=== PATIENT | male | born 1990 | race Hispanic/Latino ===

== ENCOUNTER 2018-01-20 20:05 | Inpatient (IN) | payer OTHER ==
[2018-01-20] MEDS ORDERED: Sodium Chloride 0.9% 1,000 ML IV STA (21:39)
--- NOTE | 2018-01-20 21:42 | ED PDOC ---
HPI: Headache Chief Complaint (Provider): headache History Per: Patient History/Exam Limitations: no limitations Onset/Duration Of Symptoms: Days (2) Current Symptoms Are (Timing): Still Present Quality: "Pain" Preceeding Symptoms: None Additional History Per: Patient Additional Complaint(s): 27 y/o male presents for evaluation of throbbing frontal headache x 2 days. Associated joint pain, chills. Patient took Tylenol at 10:30 this morning without improvement. Patient describes headaches as "worst headache of his life ". Patient evaluated by Urgent Care and sent to ED for further evaluation. Denies dizziness, extremity numbness/weakness, vision changes, photophobia, neck stiffness, nausea/vomiting, cough/congestion, chest pain, shortness of breath, palpitations, abdominal pain, urinary symptoms, recent travel, sick contacts. <Dannielle Young - Last Filed: 01/21/18 02:56> <Ly Villegas - Last Filed: 01/25/18 09:39> Time Seen by Provider: 01/20/18 21:30 Chief Complaint (Nursing): Headache Past Medical History Reviewed: Historical Data, Nursing Documentation, Vital Signs Vital Signs: Last Vital Signs Temp 102.1 F H 01/20/18 20:52 Pulse 86 01/20/18 20:52 Resp 20 01/20/18 20:52 BP 126/70 01/20/18 20:52 Pulse Ox 100 01/20/18 20:52 - Medical History PMH: No Chronic Diseases - Surgical History Surgical History: No Surg Hx - Family History Family History: States: No Known Family Hx - Living Arrangements Living Arrangements: With Family <Dannielle Young - Last Filed: 01/21/18 02:56> Vital Signs: Last Vital Signs Temp 97.5 F L 01/25/18 08:13 Pulse 62 01/25/18 08:13 Resp 18 01/25/18 08:13 BP 111/61 01/25/18 08:13 Pulse Ox 100 01/25/18 08:13 <Ly Villegas - Last Filed: 01/25/18 09:39> - Home Medications Home Medications: Ambulatory Orders Medication Instructions Recorded No Known Home Med 01/20/18 - Allergies Allergies/Adverse Reactions: Allergies Allergy/AdvReac Type Severity Reaction Status Date / Time No Known Allergies Allergy Verified 01/20/18 20:54 Review of Systems ROS Statement: Except As Marked, All Systems Reviewed And Found Negative Constitutional: Positive for: Fever Neurological: Positive for: Headache <Dannielle Young C - Last Filed: 01/21/18 02:56> Physical Exam - Reviewed Nursing Documentation Reviewed: Yes Vital Signs Reviewed: Yes - Physical Exam Appears: Positive for: Well, Non-toxic, No Acute Distress Head Exam: Positive for: ATRAUMATIC, NORMAL INSPECTION, NORMOCEPHALIC Skin: Positive for: Normal Color Eye Exam: Positive for: Normal appearance, EOMI, PERRL ENT: Positive for: Normal ENT Inspection Neck: Positive for: Normal, Painless ROM Cardiovascular/Chest: Positive for: Regular Rate, Rhythm Respiratory: Positive for: Normal Breath Sounds Gastrointestinal/Abdominal: Positive for: Normal Exam Back: Positive for: Normal Inspection Extremity: Positive for: Normal ROM Neurologic/Psych: Positive for: Alert, Oriented <Dannielle Young C - Last Filed: 01/21/18 02:56> - Laboratory Results Result Diagrams: 01/20/18 22:12 01/20/18 22:12 - ECG O2 Sat by Pulse Oximetry: 100 - Radiology X-Ray: Viewed By Ga X-Ray Interpretation: No Acute Disease - Progress ED Course And Treament: labs, CT head, urine, flu, strep, tylenol PO Case discussed with ED attending Dr. Villegas, IV rocephin, IV vancomycin, IV acyclovir ordered EXAM: CT Head Without Intravenous Contrast CLINICAL HISTORY: 27 years old, male; Pain and signs and symptoms; Fever; Headache; Headache not specified; Additional info: Headache, fever TECHNIQUE: Axial computed tomography images of the head/brain without intravenous contrast. All CT scans at this facility use one or more dose reduction techniques, viz.: automated exposure control; ma/kV adjustment per patient size (including targeted exams where dose is matched to indication; i.e. head); or iterative reconstruction technique. Coronal and sagittal reformatted images were created and reviewed. COMPARISON: No relevant prior studies available. FINDINGS: Brain: No intracranial hemorrhage. No mass. No definite edema. Ventricles: No hydrocephalus. Bones/joints: No acute fracture. Soft tissues: Unremarkable. Sinuses: No acute sinusitis. Mastoid air cells: No mastoid effusion. Orbits: Unremarkable as visualized. IMPRESSION: 1. No definite acute intracranial abnormality. Patient evaluated by Dr. Villegas; consent obtained for LP procedure. LP procedure completed by Dr. Villegas 2:30 Patient states headache improved. Vitals improved. Findings discussed with Dr. Powell, findings consistent with viral meningitis. Case discussed with Dr. Parekh, medical service on-call, for admission. <Dannielle Young - Last Filed: 01/21/18 02:56> - Laboratory Results Result Diagrams: 01/22/18 06:05 01/23/18 11:00 <Ly Villegas - Last Filed: 01/25/18 09:39> Disposition - Patient ED Disposition Is Patient to be Admitted: No - Disposition Disposition Time: 02:55 <Dannielle Young - Last Filed: 01/21/18 02:56> <Ly Villegas - Last Filed: 01/25/18 09:39> - Clinical Impression Clinical Impression: Viral meningitis - Disposition Condition: FAIR - PA / ENVIRONMENTAL RESEARCH PROJECT MANAGER / Resident Statement MD/DO has examined the patient and agrees with the treatment plan. <Ly Villegas - Last Filed: 01/25/18 09:39> Lumbar Puncture - Time Out Time Out: Side verified, Site verified, Patient ID confirmed, Sterile procedures obs. - Consent obtained Consent obtained: Written - Performed by Performed by: Attending Physician - Indications Indication(s): Suspected menigitis - Contraindications Contraindications: None - Patient Position Patient position: Sitting - Local Anesthetic Local Anesthetic: Lidocaine 2% Location: L4/L5 - Fluid Appearance Fluid Appearance: Clear - Post-procedure Post-procedure: No leak/bld from LP site, Dressing applied, Patient laid flat, Neurovascular status nml - CSF Studies CSF Studies: Cell count/diff, Glucose, Protein, LDH, Gram stain, culture/ sensitivity, Antigens - Complications Complications: None - Patient tolerated procedure Patient tolerated procedure: Well <Ly Villegas - Last Filed: 01/25/18 09:39>
[2018-01-20] MEDS ORDERED: SODIUM CHLORIDE 0.9% IV STA (22:12)
[2018-01-20] MEDS ORDERED: ACYCLOVIR IV STA (22:12)
[2018-01-20 22:17] LABS: BASO # 0.1 K/uL (0.0-0.2); BASO % 0.7 % (0.0-2.0); EOS % 0.1 % (0.0-4.0); HEMOGLOBIN 14.1 g/dL (12.0-18.0); LYMPH # 2.7 K/uL (1.0-4.3); LYMPH % 26.4 % (20.0-40.0); MEAN CELL VOLUME 87.3 fl (80.0-94.0); MEAN CORPUSCULAR HEMOGLOBIN 29.5 pg (27.0-31.0); MEAN CORPUSCULAR HGB CONC 33.8 g/dL (33.0-37.0); MEAN PLATELET VOLUME 8.3 fl (7.2-11.7); MONO # 0.7 K/uL (0.0-0.8); NEUT # 6.8 K/uL (1.8-7.0); NEUT % 65.8 % (50.0-75.0); RBC 4.78 Mil/uL (4.40-5.90); RED CELL DISTRIBUTION WIDTH 12.5 % (11.5-14.5); WHITE BLOOD COUNT 10.4 K/uL (4.8-10.8)
[2018-01-20 22:20] LABS: SQUAMOUS EPITHIAL < 1 /hpf (0-5); URINE BILIRUBIN NEGATIVE (NEGATIVE); URINE BLOOD NEGATIVE (NEGATIVE); URINE CLARITY CLOUDY (Clear); URINE COLOR YELLOW (YELLOW); URINE GLUCOSE (UA) NEG (Normal); URINE LEUKOCYTE ESTERASE NEG Leu/uL (Negative); URINE PROTEIN NEGATIVE (NEGATIVE); URINE UROBILINOGEN 0.2-1.0 mg/dL (0.2-1.0)
[2018-01-20 22:33] LABS: VENOUS BLOOD GAS BASE EXCESS 3.2 mmol/L (0.0-2.0); VENOUS BLOOD GAS PCO2 45 mmHg (40-60); VENOUS BLOOD GAS PO2 26 mm/Hg (30-55); VENOUS BLOOD PH 7.41 (7.32-7.43)
[2018-01-20 23:01] LABS: ALB/GLOB RATIO 1.2 (1.0-2.1); ALBUMIN 4.7 g/dL (3.5-5.0); ALT/SGPT 29 U/L (21-72); AST/SGOT 33 U/L (17-59); BLOOD UREA NITROGEN 15 mg/dl (9-20); CALCIUM 9.7 mg/dL (8.4-10.2); GFR AFRICAN-AMERICAN > 60; GFR NON-AFRICAN AMERICAN > 60
--- NOTE | 2018-01-20 23:01 | CT ---
EXAM: CT Head Without Intravenous Contrast CLINICAL HISTORY: 27 years old, male; Pain and signs and symptoms; Fever; Headache; Headache not specified; Additional info: Headache, fever TECHNIQUE: Axial computed tomography images of the head/brain without intravenous contrast. All CT scans at this facility use one or more dose reduction techniques, viz.: automated exposure control; ma/kV adjustment per patient size (including targeted exams where dose is matched to indication; i.e. head); or iterative reconstruction technique. Coronal and sagittal reformatted images were created and reviewed. COMPARISON: No relevant prior studies available. FINDINGS: Brain: No intracranial hemorrhage. No mass. No definite edema. Ventricles: No hydrocephalus. Bones/joints: No acute fracture. Soft tissues: Unremarkable. Sinuses: No acute sinusitis. Mastoid air cells: No mastoid effusion. Orbits: Unremarkable as visualized. IMPRESSION: 1. No definite acute intracranial abnormality.
[2018-01-20] MEDS ORDERED: Lidocaine 2% Inj (20ml) ONE (23:06)
[2018-01-20 23:46] LABS: FLUID TYPE SPINAL FLUID
[2018-01-21 02:09] LABS: CSF APPEARANCE CLEAR/COLORLESS (CLEAR); CSF VOLUME 1 mL (0-1)
[2018-01-21] MEDS ORDERED: Sodium Chloride 0.9% 1,000 ML IV STA ×2 (02:54)
[2018-01-21 03:17] LABS: CSF MONO/MACROPHAGE 0 % (0-0)
--- NOTE | 2018-01-21 08:23 | CP.PCM.HP ---
<Yimi Dejesus - Last Filed: 01/21/18 13:35> History of Present Illness - History of Present Illness History of Present Illness: CC: headache HPI: 27 y/o man w/ no pmh presented to the ED w/ headache. The patient reports throbbing frontal headache for 1-2 days after going out w/ friends. Patient reports he consumed 3 alcoholic drinks the entire night and denies any drug use. Patient took tylenol yesterday morning w/o relief. The patient reported associated fever, chills, night sweats, and joint pain. The patient denies head trauma, fall, LOC, nausea, vomiting, photophobia, neck stiffness, or change in vision. The patient reports his vaccines are up to date and is sexually active but denies any history of STDs. The patient reports possible sick contact as his girlfriend who had sinusitis >2 weeks ago. The patient denies dizziness, chest pain, SOB, abdominal pain, nausea, vomiting, diarrhea, dysuria, or fever. PMD: none PMH: none meds: none allergies: NKDA PSH: none Fam: denies SOC: denies smoking, alcohol abuse, and illegal drug use ROS: 12points assessed and negative unless otherwise reported in HPI Present on Admission - Present on Admission Any Indicators Present on Admission: No History of DVT/PE: No History of Uncontrolled Diabetes: No Urinary Catheter: No Decubitus Ulcer Present: No Review of Systems - Review of Systems All systems: reviewed and no additional remarkable complaints except - Constitutional Constitutional: As Per HPI, Chills, Fever, Headache, Night Sweats - EENT Eyes: absent: Change in Vision - Cardiovascular Cardiovascular: absent: Chest Pain - Respiratory Respiratory: absent: Dyspnea - Gastrointestinal Gastrointestinal: absent: Abdominal Pain, Diarrhea, Nausea, Vomiting - Genitourinary Genitourinary: absent: Dysuria - Integumentary Integumentary: absent: Rash - Neurological Neurological: Headaches. absent: Dizziness, Vertigo Past Patient History - Past Medical History & Family History Past Medical History?: No - Past Social History Smoking Status: Never Smoked - MUSCULOSKELETAL/RHEUMATOLOGICAL Hx Falls: No - PSYCHIATRIC Hx Substance Use: No - SURGICAL HISTORY Hx Surgeries: No - ANESTHESIA Hx Anesthesia: No Hx Anesthesia Reactions: No Meds Allergies/Adverse Reactions: Allergies Allergy/AdvReac Type Severity Reaction Status Date / Time No Known Allergies Allergy Verified 01/20/18 20:54 Physical Exam - Constitutional Appears: Non-toxic, No Acute Distress - Head Exam Head Exam: ATRAUMATIC, NORMAL INSPECTION, NORMOCEPHALIC - Eye Exam Eye Exam: Normal appearance - ENT Exam ENT Exam: Mucous Membranes Moist - Neck Exam Neck exam: Positive for: Full Rom, Normal Inspection. Negative for: Meningismus , Tenderness - Respiratory Exam Respiratory Exam: Clear to Auscultation Bilateral. absent: Accessory Muscle Use , Decreased Breath Sounds, Rales, Rhonchi, Wheezes, Respiratory Distress - Cardiovascular Exam Cardiovascular Exam: REGULAR RHYTHM. absent: Tachycardia - GI/Abdominal Exam GI & Abdominal Exam: Normal Bowel Sounds, Soft. absent: Distended, Tenderness - Extremities Exam Extremities exam: Negative for: calf tenderness, pedal edema, tenderness - Neurological Exam Neurological exam: Alert, CN II-XII Intact, Oriented x3 - Skin Skin Exam: Dry, Intact, Normal Color, Warm Results - Vital Signs Recent Vital Signs: Last Vital Signs Temp 98.9 F 01/21/18 08:08 Pulse 82 01/21/18 08:08 Resp 20 01/21/18 08:08 BP 110/56 L 01/21/18 08:08 Pulse Ox 99 01/21/18 08:08 - Labs Result Diagrams: 01/20/18 22:12 01/20/18 22:12 Labs: Laboratory Results - last 24 hr 01/20/18 01/20/18 01/20/18 22:11 22:11 22:12 WBC 10.4 RBC 4.78 Hgb 14.1 Hct 41.7 MCV 87.3 MCH 29.5 MCHC 33.8 RDW 12.5 Plt Count 229 MPV 8.3 Neut % (Auto) 65.8 Lymph % (Auto) 26.4 Stark % (Auto) 7.0 Eos % (Auto) 0.1 Baso % (Auto) 0.7 Neut # (Auto) 6.8 Lymph # (Auto) 2.7 Stark # (Auto) 0.7 Eos # (Auto) 0.0 Baso # (Auto) 0.1 pO2 VBG pH VBG pCO2 VBG HCO3 VBG Total CO2 VBG O2 Sat (Calc) VBG Base Excess VBG Potassium Glucose Lactate FiO2 Sodium Potassium Chloride Carbon Dioxide Anion Gap BUN Creatinine Est GFR ( Amer) Est GFR (Non-Af Amer) Random Glucose Calcium Total Bilirubin AST ALT Alkaline Phosphatase Total Protein Albumin Globulin Albumin/Globulin Ratio Venous Blood Potassium Urine Color Urine Clarity Urine pH Ur Specific Prosser Urine Protein Urine Glucose (UA) Urine Ketones Urine Blood Urine Nitrate Urine Bilirubin Urine Urobilinogen Ur Leukocyte Esterase Urine RBC (Auto) Urine Microscopic WBC Ur Squamous Epith Cells Fluid Type CSF Volume CSF Appearance CSF WBC CSF RBC CSF Total Cell Counted CSF Neutrophils CSF Lymphocytes CSF Monos/Macrophages CSF Glucose CSF Total Protein Influenza Typ A,B (EIA) Negative for flu a/b Grp A Beta Strep Ag Negative 01/20/18 01/20/18 01/20/18 22:12 22:12 22:25 WBC RBC Hgb Hct MCV MCH MCHC RDW Plt Count MPV Neut % (Auto) Lymph % (Auto) Stark % (Auto) Eos % (Auto) Baso % (Auto) Neut # (Auto) Lymph # (Auto) Stark # (Auto) Eos # (Auto) Baso # (Auto) pO2 26 L VBG pH 7.41 VBG pCO2 45 VBG HCO3 26.1 VBG Total CO2 29.9 H VBG O2 Sat (Calc) 40.3 VBG Base Excess 3.2 H VBG Potassium 4.0 Glucose 100 Lactate 1.7 FiO2 21.0 Sodium 138 136.0 Potassium 4.2 Chloride 99 100.0 Carbon Dioxide 23 Anion Gap 20 BUN 15 Creatinine 0.9 Est GFR ( Amer) > 60 Est GFR (Non-Af Amer) > 60 Random Glucose 102 Calcium 9.7 Total Bilirubin 1.0 AST 33 ALT 29 Alkaline Phosphatase 48 Total Protein 8.6 H Albumin 4.7 Globulin 3.9 Albumin/Globulin Ratio 1.2 Venous Blood Potassium 4.0 Urine Color Yellow Urine Clarity Cloudy Urine pH 8.0 Ur Specific Prosser 1.018 Urine Protein Negative Urine Glucose (UA) Neg Urine Ketones Negative Urine Blood Negative Urine Nitrate Negative Urine Bilirubin Negative Urine Urobilinogen 0.2-1.0 Ur Leukocyte Esterase Neg Urine RBC (Auto) 2 Urine Microscopic WBC 1 Ur Squamous Epith Cells < 1 Fluid Type CSF Volume CSF Appearance CSF WBC CSF RBC CSF Total Cell Counted CSF Neutrophils CSF Lymphocytes CSF Monos/Macrophages CSF Glucose CSF Total Protein Influenza Typ A,B (EIA) Grp A Beta Strep Ag 01/20/18 01/20/18 01/20/18 23:40 23:40 23:40 WBC RBC Hgb Hct MCV MCH MCHC RDW Plt Count MPV Neut % (Auto) Lymph % (Auto) Stark % (Auto) Eos % (Auto) Baso % (Auto) Neut # (Auto) Lymph # (Auto) Stark # (Auto) Eos # (Auto) Baso # (Auto) pO2 VBG pH VBG pCO2 VBG HCO3 VBG Total CO2 VBG O2 Sat (Calc) VBG Base Excess VBG Potassium Glucose Lactate FiO2 Sodium Potassium Chloride Carbon Dioxide Anion Gap BUN Creatinine Est GFR ( Amer) Est GFR (Non-Af Amer) Random Glucose Calcium Total Bilirubin AST ALT Alkaline Phosphatase Total Protein Albumin Globulin Albumin/Globulin Ratio Venous Blood Potassium Urine Color Urine Clarity Urine pH Ur Specific Prosser Urine Protein Urine Glucose (UA) Urine Ketones Urine Blood Urine Nitrate Urine Bilirubin Urine Urobilinogen Ur Leukocyte Esterase Urine RBC (Auto) Urine Microscopic WBC Ur Squamous Epith Cells Fluid Type Spinal fluid CSF Volume 1 CSF Appearance Clear/colorless CSF WBC 42.0 H CSF RBC 2.0 H CSF Total Cell Counted 98 H CSF Neutrophils 11 H CSF Lymphocytes 87.0 H CSF Monos/Macrophages 0 CSF Glucose 52 CSF Total Protein 62.0 H Influenza Typ A,B (EIA) Grp A Beta Strep Ag Assessment & Plan (1) Acute headache Status: Acute (2) Viral meningitis Status: Acute - Assessment and Plan (Free Text) Plan: c/w present management afebrile, non-tachycardic, normotensive currently no signs of sepsis ID consult ordered CBC: 10.4>14.1/41.7<229 CMP: 138/4.2, 99/23, 15/0.9, glucose 102, AST 33, ALT 29, alk phos 48 UA: WNL, no UTI flu negative group A strep negative CSF: very elevated lymphocyte count, mild elevation of neutrophils CSF culture: no organisms seen ceftriaxone 2 gm IV Q12h day 1 vancomycin 1 gm IV Q12h day 1 acyclovir 500 mg IV Q8h day 1 prophylactic measures: DVT SCDs monitor for acute changes maintain droplet isolation <Maulik Parekh - Last Filed: 01/24/18 17:57> Results - Vital Signs Recent Vital Signs: Last Vital Signs Temp 97.6 F 01/24/18 16:15 Pulse 63 01/24/18 16:15 Resp 18 01/24/18 16:15 BP 124/56 L 01/24/18 16:15 Pulse Ox 98 01/24/18 16:15 - Labs Result Diagrams: 01/22/18 06:05 01/23/18 11:00 Labs: Laboratory Results - last 24 hr 01/20/18 23:40 HSV Source Description Csf HSV I DNA PCR Not detected HSV II DNA PCR Not detected Assessment & Plan - Assessment and Plan (Free Text) Plan: I was present during evaluation and discussed with Dr Dejesus re plans of care and mgt. Maulik Parekh M.D.
--- NOTE | 2018-01-21 09:34 | RAD ---
HISTORY: fever COMPARISON: No prior. FINDINGS: LUNGS: No active pulmonary disease. Bilateral hyperinflation PLEURA: No significant pleural effusion identified, no pneumothorax apparent. CARDIOVASCULAR: Normal. OSSEOUS STRUCTURES: Scoliosis. This is believe to accentuate the appearance of the right hilum VISUALIZED UPPER ABDOMEN: Normal. OTHER FINDINGS: None. IMPRESSION: No pulmonary infiltrate appreciated. Bilateral hyperaeration. Scoliosis
[2018-01-21] MEDS: cefTRIAXone 2 GM in Sodium Chloride 0.9% 100 ML IVPB SCH ×2 (10:06→20:41)
[2018-01-21] MEDS: Acyclovir 500 MG in Sodium Chloride 0.9% 100 ML IVPB SCH ×2 (10:07→17:53)
--- NOTE | 2018-01-21 16:51 | CP.PCM.CON ---
<Deondre Rapp - Last Filed: 01/21/18 16:44> History of Present Illness - History of Present Illness History of Present Illness: Infectious Disease - Dr. Mckeon 27M seen and evaluated at bedside concerning viral meningitis. Girlfriend present at bedside. Patient states he presented to ED yesterday evening after experiencing a severe frontal headache of 2 days duration, with associated fever , malaise, and joint pain in elbows and sternum. Admits to taking tylenol for alleviation of pain with no success. At present, patient states his symptoms are improving headache is decreasing, able to ambulate without issues, though still complaining of minor joint discomfort. Patient denies any recent trauma, LOC, changes in vision, nausea, vomiting, vertigo, diarrhea, dizziness, chills, abd pain, sob. Review of Systems - Review of Systems All systems: reviewed and no additional remarkable complaints except (as per HPI ) Past Patient History - Past Medical History & Family History Past Medical History?: No - Past Social History Smoking Status: Never Smoked - MUSCULOSKELETAL/RHEUMATOLOGICAL Hx Falls: No - PSYCHIATRIC Hx Substance Use: No - SURGICAL HISTORY Hx Surgeries: No - ANESTHESIA Hx Anesthesia: No Hx Anesthesia Reactions: No Meds Allergies/Adverse Reactions: Allergies Allergy/AdvReac Type Severity Reaction Status Date / Time No Known Allergies Allergy Verified 01/20/18 20:54 - Medications Medications: Current Medications Acetaminophen (Tylenol 325mg Tab) 650 mg PO Q4 PRN PRN Reason: Fever >100.4 F Vancomycin HCl 1 gm/ Sodium (Chloride) 250 mls @ 166.667 mls/hr IVPB Q12 MARISOL PRN Reason: Protocol Last Admin: 01/21/18 12:55 Dose: 166.667 mls/hr Ceftriaxone Sodium 2 gm/ (Sodium Chloride) 100 mls @ 100 mls/hr IVPB Q12 MARISOL PRN Reason: Protocol Last Admin: 01/21/18 10:06 Dose: 100 mls/hr Acyclovir 500 mg/ Sodium (Chloride) 100 mls @ 100 mls/hr IVPB Q8 MARISOL PRN Reason: Protocol Last Admin: 01/21/18 10:07 Dose: 100 mls/hr Physical Exam - Constitutional Appears: Non-toxic, No Acute Distress - Head Exam Head Exam: ATRAUMATIC, NORMAL INSPECTION, NORMOCEPHALIC - Eye Exam Eye Exam: EOMI, Normal appearance Pupil Exam: NORMAL ACCOMODATION, PERRL - ENT Exam ENT Exam: Mucous Membranes Moist - Neck Exam Neck exam: Positive for: Full Rom. Negative for: Meningismus, Tenderness - Respiratory Exam Respiratory Exam: Clear to Auscultation Bilateral, NORMAL BREATHING PATTERN. absent: Rales, Rhonchi, Wheezes - Cardiovascular Exam Cardiovascular Exam: REGULAR RHYTHM, +S1, +S2 - GI/Abdominal Exam GI & Abdominal Exam: Normal Bowel Sounds, Soft. absent: Distended, Tenderness - Extremities Exam Extremities exam: Positive for: normal inspection, tenderness. Negative for: calf tenderness, joint swelling, pedal edema - Back Exam Back exam: FULL ROM, NORMAL INSPECTION. absent: paraspinal tenderness, tenderness - Neurological Exam Neurological exam: Alert, CN II-XII Intact, Oriented x3 - Psychiatric Exam Psychiatric exam: Normal Affect, Normal Mood - Skin Skin Exam: Dry, Intact, Normal Color, Warm Results - Vital Signs Recent Vital Signs: Last Vital Signs Temp 99.8 F H 01/21/18 16:00 Pulse 90 01/21/18 16:00 Resp 18 01/21/18 16:00 BP 119/66 01/21/18 16:00 Pulse Ox 100 01/21/18 16:00 - Labs Result Diagrams: 01/20/18 22:12 01/20/18 22:12 Labs: Laboratory Results - last 24 hr 01/20/18 01/20/18 01/20/18 22:11 22:11 22:12 WBC 10.4 RBC 4.78 Hgb 14.1 Hct 41.7 MCV 87.3 MCH 29.5 MCHC 33.8 RDW 12.5 Plt Count 229 MPV 8.3 Neut % (Auto) 65.8 Lymph % (Auto) 26.4 [place] % (Auto) 7.0 Eos % (Auto) 0.1 Baso % (Auto) 0.7 Neut # (Auto) 6.8 Lymph # (Auto) 2.7 [place] # (Auto) 0.7 Eos # (Auto) 0.0 Baso # (Auto) 0.1 pO2 VBG pH VBG pCO2 VBG HCO3 VBG Total CO2 VBG O2 Sat (Calc) VBG Base Excess VBG Potassium Glucose Lactate FiO2 Sodium Potassium Chloride Carbon Dioxide Anion Gap BUN Creatinine Est GFR ( Amer) Est GFR (Non-Af Amer) Random Glucose Calcium Total Bilirubin AST ALT Alkaline Phosphatase Total Protein Albumin Globulin Albumin/Globulin Ratio Venous Blood Potassium Urine Color Urine Clarity Urine pH Ur Specific [place] Urine Protein Urine Glucose (UA) Urine Ketones Urine Blood Urine Nitrate Urine Bilirubin Urine Urobilinogen Ur Leukocyte Esterase Urine RBC (Auto) Urine Microscopic WBC Ur Squamous Epith Cells Fluid Type CSF Volume CSF Appearance CSF WBC CSF RBC CSF Total Cell Counted CSF Neutrophils CSF Lymphocytes CSF Monos/Macrophages CSF Glucose CSF Total Protein Influenza Typ A,B (EIA) Negative for flu a/b Grp A Beta Strep Ag Negative 01/20/18 01/20/18 01/20/18 22:12 22:12 22:25 WBC RBC Hgb Hct MCV MCH MCHC RDW Plt Count MPV Neut % (Auto) Lymph % (Auto) [place] % (Auto) Eos % (Auto) Baso % (Auto) Neut # (Auto) Lymph # (Auto) [place] # (Auto) Eos # (Auto) Baso # (Auto) pO2 26 L VBG pH 7.41 VBG pCO2 45 VBG HCO3 26.1 VBG Total CO2 29.9 H VBG O2 Sat (Calc) 40.3 VBG Base Excess 3.2 H VBG Potassium 4.0 Glucose 100 Lactate 1.7 FiO2 21.0 Sodium 138 136.0 Potassium 4.2 Chloride 99 100.0 Carbon Dioxide 23 Anion Gap 20 BUN 15 Creatinine 0.9 Est GFR ( Amer) > 60 Est GFR (Non-Af Amer) > 60 Random Glucose 102 Calcium 9.7 Total Bilirubin 1.0 AST 33 ALT 29 Alkaline Phosphatase 48 Total Protein 8.6 H Albumin 4.7 Globulin 3.9 Albumin/Globulin Ratio 1.2 Venous Blood Potassium 4.0 Urine Color Yellow Urine Clarity Cloudy Urine pH 8.0 Ur Specific [place] 1.018 Urine Protein Negative Urine Glucose (UA) Neg Urine Ketones Negative Urine Blood Negative Urine Nitrate Negative Urine Bilirubin Negative Urine Urobilinogen 0.2-1.0 Ur Leukocyte Esterase Neg Urine RBC (Auto) 2 Urine Microscopic WBC 1 Ur Squamous Epith Cells < 1 Fluid Type CSF Volume CSF Appearance CSF WBC CSF RBC CSF Total Cell Counted CSF Neutrophils CSF Lymphocytes CSF Monos/Macrophages CSF Glucose CSF Total Protein Influenza Typ A,B (EIA) Grp A Beta Strep Ag 01/20/18 01/20/18 01/20/18 23:40 23:40 23:40 WBC RBC Hgb Hct MCV MCH MCHC RDW Plt Count MPV Neut % (Auto) Lymph % (Auto) [place] % (Auto) Eos % (Auto) Baso % (Auto) Neut # (Auto) Lymph # (Auto) [place] # (Auto) Eos # (Auto) Baso # (Auto) pO2 VBG pH VBG pCO2 VBG HCO3 VBG Total CO2 VBG O2 Sat (Calc) VBG Base Excess VBG Potassium Glucose Lactate FiO2 Sodium Potassium Chloride Carbon Dioxide Anion Gap BUN Creatinine Est GFR ( Amer) Est GFR (Non-Af Amer) Random Glucose Calcium Total Bilirubin AST ALT Alkaline Phosphatase Total Protein Albumin Globulin Albumin/Globulin Ratio Venous Blood Potassium Urine Color Urine Clarity Urine pH Ur Specific [place] Urine Protein Urine Glucose (UA) Urine Ketones Urine Blood Urine Nitrate Urine Bilirubin Urine Urobilinogen Ur Leukocyte Esterase Urine RBC (Auto) Urine Microscopic WBC Ur Squamous Epith Cells Fluid Type Spinal fluid CSF Volume 1 CSF Appearance Clear/colorless CSF WBC 42.0 H CSF RBC 2.0 H CSF Total Cell Counted 98 H CSF Neutrophils 11 H CSF Lymphocytes 87.0 H CSF Monos/Macrophages 0 CSF Glucose 52 CSF Total Protein 62.0 H Influenza Typ A,B (EIA) Grp A Beta Strep Ag Assessment & Plan (1) Acute headache Status: Acute (2) Viral meningitis Status: Acute - Assessment and Plan (Free Text) Plan: Patient seen and evaluated UA WNL, Influenza negative, Strep group A negative CSF lymphocytes elevated, mild elevation neutrophils Awaiting blood cx, throat cx Continue Ceftriaxone 2g IV, Vancomycin 1g IV, Acyclovir 500mg IV pending Respiratory precautions Will continue to follow <Meño Mckeon - Last Filed: 01/21/18 17:59> History of Present Illness - History of Present Illness History of Present Illness: c/o nonspecific joint pain without swelling no travel except [place] over weekend no ill contacts no pets no bites works in [employer]- travels to and from [facility] by [employer] daily Meds - Medications Medications: Current Medications Acetaminophen (Tylenol 325mg Tab) 650 mg PO Q4 PRN PRN Reason: Fever >100.4 F Vancomycin HCl 1 gm/ Sodium (Chloride) 250 mls @ 166.667 mls/hr IVPB Q12 MARISOL PRN Reason: Protocol Last Admin: 01/21/18 12:55 Dose: 166.667 mls/hr Ceftriaxone Sodium 2 gm/ (Sodium Chloride) 100 mls @ 100 mls/hr IVPB Q12 MARISOL PRN Reason: Protocol Last Admin: 01/21/18 10:06 Dose: 100 mls/hr Acyclovir 500 mg/ Sodium (Chloride) 100 mls @ 100 mls/hr IVPB Q8 MARISOL PRN Reason: Protocol Last Admin: 01/21/18 17:53 Dose: 100 mls/hr Physical Exam - Neck Exam Neck exam: Negative for: Lymphadenopathy - Cardiovascular Exam Cardiovascular Exam: absent: Systolic Murmur - Rectal Exam Rectal Exam: Deferred - Exam Exam: NORMAL INSPECTION Results - Vital Signs Recent Vital Signs: Last Vital Signs Temp 99.8 F H 01/21/18 16:00 Pulse 90 01/21/18 16:00 Resp 18 01/21/18 16:00 BP 119/66 01/21/18 16:00 Pulse Ox 100 01/21/18 16:00 - Labs Result Diagrams: 01/20/18 22:12 01/20/18 22:12 Labs: Laboratory Results - last 24 hr 01/20/18 01/20/18 01/20/18 22:11 22:11 22:12 WBC 10.4 RBC 4.78 Hgb 14.1 Hct 41.7 MCV 87.3 MCH 29.5 MCHC 33.8 RDW 12.5 Plt Count 229 MPV 8.3 Neut % (Auto) 65.8 Lymph % (Auto) 26.4 [place] % (Auto) 7.0 Eos % (Auto) 0.1 Baso % (Auto) 0.7 Neut # (Auto) 6.8 Lymph # (Auto) 2.7 [place] # (Auto) 0.7 Eos # (Auto) 0.0 Baso # (Auto) 0.1 pO2 VBG pH VBG pCO2 VBG HCO3 VBG Total CO2 VBG O2 Sat (Calc) VBG Base Excess VBG Potassium Glucose Lactate FiO2 Sodium Potassium Chloride Carbon Dioxide Anion Gap BUN Creatinine Est GFR ( Amer) Est GFR (Non-Af Amer) Random Glucose Calcium Total Bilirubin AST ALT Alkaline Phosphatase Total Protein Albumin Globulin Albumin/Globulin Ratio Venous Blood Potassium Urine Color Urine Clarity Urine pH Ur Specific [place] Urine Protein Urine Glucose (UA) Urine Ketones Urine Blood Urine Nitrate Urine Bilirubin Urine Urobilinogen Ur Leukocyte Esterase Urine RBC (Auto) Urine Microscopic WBC Ur Squamous Epith Cells Fluid Type CSF Volume CSF Appearance CSF WBC CSF RBC CSF Total Cell Counted CSF Neutrophils CSF Lymphocytes CSF Monos/Macrophages CSF Glucose CSF Total Protein Influenza Typ A,B (EIA) Negative for flu a/b Grp A Beta Strep Ag Negative 01/20/18 01/20/18 01/20/18 22:12 22:12 22:25 WBC RBC Hgb Hct MCV MCH MCHC RDW Plt Count MPV Neut % (Auto) Lymph % (Auto) [place] % (Auto) Eos % (Auto) Baso % (Auto) Neut # (Auto) Lymph # (Auto) [place] # (Auto) Eos # (Auto) Baso # (Auto) pO2 26 L VBG pH 7.41 VBG pCO2 45 VBG HCO3 26.1 VBG Total CO2 29.9 H VBG O2 Sat (Calc) 40.3 VBG Base Excess 3.2 H VBG Potassium 4.0 Glucose 100 Lactate 1.7 FiO2 21.0 Sodium 138 136.0 Potassium 4.2 Chloride 99 100.0 Carbon Dioxide 23 Anion Gap 20 BUN 15 Creatinine 0.9 Est GFR ( Amer) > 60 Est GFR (Non-Af Amer) > 60 Random Glucose 102 Calcium 9.7 Total Bilirubin 1.0 AST 33 ALT 29 Alkaline Phosphatase 48 Total Protein 8.6 H Albumin 4.7 Globulin 3.9 Albumin/Globulin Ratio 1.2 Venous Blood Potassium 4.0 Urine Color Yellow Urine Clarity Cloudy Urine pH 8.0 Ur Specific [place] 1.018 Urine Protein Negative Urine Glucose (UA) Neg Urine Ketones Negative Urine Blood Negative Urine Nitrate Negative Urine Bilirubin Negative Urine Urobilinogen 0.2-1.0 Ur Leukocyte Esterase Neg Urine RBC (Auto) 2 Urine Microscopic WBC 1 Ur Squamous Epith Cells < 1 Fluid Type CSF Volume CSF Appearance CSF WBC CSF RBC CSF Total Cell Counted CSF Neutrophils CSF Lymphocytes CSF Monos/Macrophages CSF Glucose CSF Total Protein Influenza Typ A,B (EIA) Grp A Beta Strep Ag 01/20/18 01/20/18 01/20/18 23:40 23:40 23:40 WBC RBC Hgb Hct MCV MCH MCHC RDW Plt Count MPV Neut % (Auto) Lymph % (Auto) [place] % (Auto) Eos % (Auto) Baso % (Auto) Neut # (Auto) Lymph # (Auto) [place] # (Auto) Eos # (Auto) Baso # (Auto) pO2 VBG pH VBG pCO2 VBG HCO3 VBG Total CO2 VBG O2 Sat (Calc) VBG Base Excess VBG Potassium Glucose Lactate FiO2 Sodium Potassium Chloride Carbon Dioxide Anion Gap BUN Creatinine Est GFR ( Amer) Est GFR (Non-Af Amer) Random Glucose Calcium Total Bilirubin AST ALT Alkaline Phosphatase Total Protein Albumin Globulin Albumin/Globulin Ratio Venous Blood Potassium Urine Color Urine Clarity Urine pH Ur Specific [place] Urine Protein Urine Glucose (UA) Urine Ketones Urine Blood Urine Nitrate Urine Bilirubin Urine Urobilinogen Ur Leukocyte Esterase Urine RBC (Auto) Urine Microscopic WBC Ur Squamous Epith Cells Fluid Type Spinal fluid CSF Volume 1 CSF Appearance Clear/colorless CSF WBC 42.0 H CSF RBC 2.0 H CSF Total Cell Counted 98 H CSF Neutrophils 11 H CSF Lymphocytes 87.0 H CSF Monos/Macrophages 0 CSF Glucose 52 CSF Total Protein 62.0 H Influenza Typ A,B (EIA) Grp A Beta Strep Ag Assessment & Plan (1) Acute headache Status: Acute (2) Viral meningitis Status: Acute - Assessment and Plan (Free Text) Plan: await HSV II PCR and CSF cultures will send serology for HIV and EBV if not sent as well as RMSF and Lyme
[2018-01-22] MEDS: Acyclovir 500 MG in Sodium Chloride 0.9% 100 ML IVPB SCH ×3 (00:38→16:50)
[2018-01-22 06:29] LABS: HEMOGLOBIN 13.4 g/dL (12.0-18.0); MEAN CELL VOLUME 87.5 fl (80.0-94.0); MEAN CORPUSCULAR HEMOGLOBIN 29.5 pg (27.0-31.0); MEAN CORPUSCULAR HGB CONC 33.7 g/dL (33.0-37.0); RBC 4.54 Mil/uL (4.40-5.90); RED CELL DISTRIBUTION WIDTH 12.2 % (11.5-14.5); WHITE BLOOD COUNT 7.6 K/uL (4.8-10.8)
[2018-01-22 06:59] LABS: BLOOD UREA NITROGEN 10 mg/dl (9-20); CALCIUM 9.4 mg/dL (8.4-10.2); GFR AFRICAN-AMERICAN > 60; GFR NON-AFRICAN AMERICAN > 60
--- NOTE | 2018-01-22 08:06 | CP.PCM.PN ---
<Yimi Dejesus - Last Filed: 01/22/18 12:10> Subjective - Date & Time of Evaluation Date of Evaluation: 01/22/18 Time of Evaluation: 07:45 - Subjective Subjective: Patient seen and examined this morning at bedside w/ Dr. Parekh. There are no acute events overnight, NAD. The patient reports no headaches since admission. The patient remains on droplet isolation as per ID until definitive diagnosis is made. Otherwise, patient has no complaints. Patient denies headaches, dizziness, chest pain, SOB, abdominal pain, nausea, vomiting, diarrhea, dysuria , or fever. Objective - Vital Signs/Intake and Output Vital Signs (last 24 hours): Temp Pulse Resp BP Pulse Ox 98.5 F 64 20 104/52 L 97 01/22/18 07:48 01/22/18 07:48 01/22/18 07:48 01/22/18 07:48 01/22/18 07:48 - Medications Medications: Current Medications Acetaminophen (Tylenol 325mg Tab) 650 mg PO Q4 PRN PRN Reason: Fever >100.4 F Vancomycin HCl 1 gm/ Sodium (Chloride) 250 mls @ 166.667 mls/hr IVPB Q12 MARISOL PRN Reason: Protocol Last Admin: 01/21/18 21:58 Dose: 166.667 mls/hr Ceftriaxone Sodium 2 gm/ (Sodium Chloride) 100 mls @ 100 mls/hr IVPB Q12 MARISOL PRN Reason: Protocol Last Admin: 01/21/18 20:41 Dose: 100 mls/hr Acyclovir 500 mg/ Sodium (Chloride) 100 mls @ 100 mls/hr IVPB Q8 MARISOL PRN Reason: Protocol Last Admin: 01/22/18 00:38 Dose: 100 mls/hr - Labs Labs: 01/22/18 06:05 01/22/18 06:05 - Constitutional Appears: Non-toxic, No Acute Distress - Head Exam Head Exam: ATRAUMATIC, NORMAL INSPECTION, NORMOCEPHALIC - Eye Exam Eye Exam: Normal appearance - ENT Exam ENT Exam: Mucous Membranes Moist - Neck Exam Neck Exam: Full ROM. absent: Tenderness - Respiratory Exam Respiratory Exam: Clear to Ausculation Bilateral. absent: Accessory Muscle Use , Decreased Breath Sounds, Rales, Rhonchi, Wheezes, Respiratory Distress - Cardiovascular Exam Cardiovascular Exam: REGULAR RHYTHM. absent: Tachycardia - GI/Abdominal Exam GI & Abdominal Exam: Soft, Normal Bowel Sounds. absent: Distended, Tenderness - Extremities Exam Extremities Exam: absent: Calf Tenderness, Pedal Edema, Tenderness - Neurological Exam Neurological Exam: Alert, Awake, Normal Gait, Oriented x3 - Skin Skin Exam: Dry, Intact, Normal Color, Warm Assessment and Plan (1) Acute headache Status: Acute (2) Viral meningitis Status: Acute - Assessment and Plan (Free Text) Plan: c/w present management afebrile, non-tachycardic, normotensive currently no signs of sepsis ID recommendations appreciated CBC: 7.6>13.4/39.8<177 BMP: 143/4.0, 101/24, 10/1.0, glucose 96 UA: WNL, no UTI flu negative group A strep negative CSF: very elevated lymphocyte count, mild elevation of neutrophils CSF culture: no organisms seen ceftriaxone 2 gm IV Q12h day 2 vancomycin 1 gm IV Q12h day 2 acyclovir 500 mg IV Q8h day 2 prophylactic measures: DVT SCDs monitor for acute changes f/u herpes simplex, colton-saez, lyme, daina, [place], RPR, HIV maintain droplet isolation <Maulik Parekh - Last Filed: 01/24/18 17:59> Objective - Vital Signs/Intake and Output Vital Signs (last 24 hours): Temp Pulse Resp BP Pulse Ox 97.6 F 63 18 124/56 L 98 01/24/18 16:15 01/24/18 16:15 01/24/18 16:15 01/24/18 16:15 01/24/18 16:15 - Medications Medications: Current Medications Acetaminophen (Tylenol 325mg Tab) 650 mg PO Q4 PRN PRN Reason: Fever >100.4 F Last Admin: 01/24/18 12:50 Dose: 650 mg Acetaminophen (Tylenol 325mg Tab) 650 mg PO Q6 PRN PRN Reason: Pain, Mild (1-3) Ceftriaxone Sodium 2 gm/ (Sodium Chloride) 100 mls @ 100 mls/hr IVPB Q12 MARISOL PRN Reason: Protocol Acyclovir 500 mg/ Sodium (Chloride) 100 mls @ 100 mls/hr IV Q8 MARISOL PRN Reason: Protocol - Labs Labs: 01/22/18 06:05 01/23/18 11:00 Assessment and Plan - Assessment and Plan (Free Text) Plan: I was present during evaluation and discussed with DR Anjelica montilla plans of care and tx, Maulik Parekh M.D.
[2018-01-22] MEDS: cefTRIAXone 2 GM in Sodium Chloride 0.9% 100 ML IVPB SCH ×2 (09:57→20:48)
--- NOTE | 2018-01-22 12:37 | CP.PCM.PN ---
Subjective - Date & Time of Evaluation Date of Evaluation: 01/22/18 Time of Evaluation: 08:00 - Subjective Subjective: headache less final cultures pending await HSV PCR of CSF Objective - Vital Signs/Intake and Output Vital Signs (last 24 hours): Temp Pulse Resp BP Pulse Ox 98.5 F 64 20 104/52 L 97 01/22/18 07:48 01/22/18 07:48 01/22/18 07:48 01/22/18 07:48 01/22/18 07:48 - Medications Medications: Current Medications Acetaminophen (Tylenol 325mg Tab) 650 mg PO Q4 PRN PRN Reason: Fever >100.4 F Vancomycin HCl 1 gm/ Sodium (Chloride) 250 mls @ 166.667 mls/hr IVPB Q12 MARISOL PRN Reason: Protocol Last Admin: 01/22/18 11:08 Dose: 166.667 mls/hr Ceftriaxone Sodium 2 gm/ (Sodium Chloride) 100 mls @ 100 mls/hr IVPB Q12 MARISOL PRN Reason: Protocol Last Admin: 01/22/18 09:57 Dose: 100 mls/hr Acyclovir 500 mg/ Sodium (Chloride) 100 mls @ 100 mls/hr IVPB Q8 MARISOL PRN Reason: Protocol Last Admin: 01/22/18 08:54 Dose: 100 mls/hr - Labs Labs: 01/22/18 06:05 01/22/18 06:05 - Constitutional Appears: Non-toxic, Chronically Ill - Head Exam Head Exam: NORMOCEPHALIC - Eye Exam Eye Exam: PERRL - ENT Exam ENT Exam: Mucous Membranes Dry - Neck Exam Neck Exam: absent: Lymphadenopathy - Respiratory Exam Respiratory Exam: Decreased Breath Sounds - Cardiovascular Exam Cardiovascular Exam: REGULAR RHYTHM - GI/Abdominal Exam GI & Abdominal Exam: Distended - Rectal Exam Rectal Exam: Deferred - Exam Exam: NORMAL INSPECTION - Extremities Exam Extremities Exam: absent: Pedal Edema - Back Exam Back Exam: absent: CVA tenderness (L), CVA tenderness (R) - Neurological Exam Neurological Exam: Alert, Awake, CN II-XII Intact, Oriented x3 Neuro motor strength exam: Left Upper Extremity: 4, Right Upper Extremity: 4, Left Lower Extremity: 4, Right Lower Extremity: 4 - Psychiatric Exam Psychiatric exam: Normal Mood - Skin Skin Exam: Dry Assessment and Plan (1) Acute headache Status: Acute (2) Viral meningitis Status: Acute - Assessment and Plan (Free Text) Assessment: cont iv acyclovir ok to d/c vanco possible d/c on Valtrex 1 g BID x 7 days
[2018-01-23] MEDS: Acyclovir 500 MG in Sodium Chloride 0.9% 100 ML IVPB SCH ×3 (01:31→16:55)
[2018-01-23] MEDS: cefTRIAXone 2 GM in Sodium Chloride 0.9% 100 ML IVPB SCH ×2 (10:16→20:37)
[2018-01-23 11:48] LABS: ALB/GLOB RATIO 1.1 (1.0-2.1); ALBUMIN 4.3 g/dL (3.5-5.0); ALT/SGPT 29 U/L (21-72); AST/SGOT 18 U/L (17-59); BLOOD UREA NITROGEN 12 mg/dl (9-20); CALCIUM 9.2 mg/dL (8.4-10.2); GFR AFRICAN-AMERICAN > 60; GFR NON-AFRICAN AMERICAN > 60
[2018-01-23 20:13] LABS: SPECIMEN SOURCE CSF
[2018-01-24] MEDS: Acyclovir 500 MG in Sodium Chloride 0.9% 100 ML IVPB SCH ×2 (00:05→09:00)
[2018-01-24] MEDS: cefTRIAXone 2 GM in Sodium Chloride 0.9% 100 ML IVPB SCH ×2 (09:01→21:54)
--- NOTE | 2018-01-24 12:14 | CP.PCM.PN ---
Subjective - Date & Time of Evaluation Date of Evaluation: 01/24/18 Time of Evaluation: 10:00 - Subjective Subjective: awake alert denies headache no fever Objective - Vital Signs/Intake and Output Vital Signs (last 24 hours): Temp Pulse Resp BP Pulse Ox 97.9 F 86 20 100/53 L 100 01/24/18 08:11 01/24/18 08:11 01/24/18 08:11 01/24/18 08:11 01/24/18 08:11 - Medications Medications: Current Medications Acetaminophen (Tylenol 325mg Tab) 650 mg PO Q4 PRN PRN Reason: Fever >100.4 F Acetaminophen (Tylenol 325mg Tab) 650 mg PO Q6 PRN PRN Reason: Pain, Mild (1-3) - Labs Labs: 01/22/18 06:05 01/23/18 11:00 - Constitutional Appears: Non-toxic, Chronically Ill - Head Exam Head Exam: NORMOCEPHALIC - Eye Exam Eye Exam: PERRL - ENT Exam ENT Exam: Mucous Membranes Dry - Neck Exam Neck Exam: absent: Lymphadenopathy - Respiratory Exam Respiratory Exam: Decreased Breath Sounds - Cardiovascular Exam Cardiovascular Exam: REGULAR RHYTHM - GI/Abdominal Exam GI & Abdominal Exam: Distended, Soft - Rectal Exam Rectal Exam: Deferred - Exam Exam: NORMAL INSPECTION - Extremities Exam Extremities Exam: absent: Pedal Edema - Back Exam Back Exam: absent: CVA tenderness (L), CVA tenderness (R) - Neurological Exam Neurological Exam: Alert, Awake, CN II-XII Intact, Oriented x3 - Psychiatric Exam Psychiatric exam: Normal Mood - Skin Skin Exam: Dry, Intact Assessment and Plan (1) Acute headache Status: Acute (2) Viral meningitis Status: Acute - Assessment and Plan (Free Text) Assessment: all cultures neg thus far appears to be improving con cont PO rx as out pt
--- NOTE | 2018-01-24 18:03 | CP.PCM.PN ---
Subjective - Date & Time of Evaluation Date of Evaluation: 01/23/18 Time of Evaluation: 11:30 - Subjective Subjective: Patient continues to do well So far all titers and serology are negative and prelim C and s are also negative Has no headaches Has no neck pain. Has no fever. Objective - Vital Signs/Intake and Output Vital Signs (last 24 hours): Temp Pulse Resp BP Pulse Ox 97.6 F 63 18 124/56 L 98 01/24/18 16:15 01/24/18 16:15 01/24/18 16:15 01/24/18 16:15 01/24/18 16:15 - Medications Medications: Current Medications Acetaminophen (Tylenol 325mg Tab) 650 mg PO Q4 PRN PRN Reason: Fever >100.4 F Last Admin: 01/24/18 12:50 Dose: 650 mg Acetaminophen (Tylenol 325mg Tab) 650 mg PO Q6 PRN PRN Reason: Pain, Mild (1-3) Ceftriaxone Sodium 2 gm/ (Sodium Chloride) 100 mls @ 100 mls/hr IVPB Q12 MARISOL PRN Reason: Protocol Acyclovir 500 mg/ Sodium (Chloride) 100 mls @ 100 mls/hr IV Q8 MARISOL PRN Reason: Protocol - Labs Labs: 01/22/18 06:05 01/23/18 11:00 - Head Exam Head Exam: NORMAL INSPECTION - Eye Exam Eye Exam: Normal appearance - ENT Exam ENT Exam: Mucous Membranes Moist - Respiratory Exam Respiratory Exam: Clear to Ausculation Bilateral - Cardiovascular Exam Cardiovascular Exam: REGULAR RHYTHM - GI/Abdominal Exam GI & Abdominal Exam: Normal Bowel Sounds - Neurological Exam Neurological Exam: Awake, Oriented x3 - Psychiatric Exam Psychiatric exam: Normal Mood Assessment and Plan (1) Viral meningitis Status: Acute (2) Acute headache Status: Acute - Assessment and Plan (Free Text) Plan: Cont meds Cont tx Discussed with Dr Mckeon Cont meds.
--- NOTE | 2018-01-24 18:05 | CP.PCM.PN ---
Subjective - Date & Time of Evaluation Date of Evaluation: 01/24/18 Time of Evaluation: 12:30 - Subjective Subjective: Patient remains stable Afebriel Has no headaches Has no neck pains, All serology tests and C and S are all negative Objective - Vital Signs/Intake and Output Vital Signs (last 24 hours): Temp Pulse Resp BP Pulse Ox 97.6 F 63 18 124/56 L 98 01/24/18 16:15 01/24/18 16:15 01/24/18 16:15 01/24/18 16:15 01/24/18 16:15 - Medications Medications: Current Medications Acetaminophen (Tylenol 325mg Tab) 650 mg PO Q4 PRN PRN Reason: Fever >100.4 F Last Admin: 01/24/18 12:50 Dose: 650 mg Acetaminophen (Tylenol 325mg Tab) 650 mg PO Q6 PRN PRN Reason: Pain, Mild (1-3) Ceftriaxone Sodium 2 gm/ (Sodium Chloride) 100 mls @ 100 mls/hr IVPB Q12 MARISOL PRN Reason: Protocol Acyclovir 500 mg/ Sodium (Chloride) 100 mls @ 100 mls/hr IV Q8 MARISOL PRN Reason: Protocol - Labs Labs: 01/22/18 06:05 01/23/18 11:00 - Head Exam Head Exam: NORMAL INSPECTION - Eye Exam Eye Exam: Normal appearance - ENT Exam ENT Exam: Mucous Membranes Moist - Respiratory Exam Respiratory Exam: Clear to Ausculation Bilateral - Cardiovascular Exam Cardiovascular Exam: REGULAR RHYTHM - GI/Abdominal Exam GI & Abdominal Exam: Normal Bowel Sounds - Neurological Exam Neurological Exam: Awake, Oriented x3 - Psychiatric Exam Psychiatric exam: Normal Mood Assessment and Plan (1) Viral meningitis Status: Acute (2) Acute headache Status: Acute - Assessment and Plan (Free Text) Plan: Con tmeds Cont tx Cont PT Discharge Plans.
[2018-01-24] MEDS: Acyclovir 500 MG in Sodium Chloride 0.9% 100 ML IV SCH (18:08)
[2018-01-25] MEDS: Acyclovir 500 MG in Sodium Chloride 0.9% 100 ML IV SCH ×2 (01:08→09:09)
[2018-01-25 08:14] VITALS: BP 111/61; PULSE 62; RESP 18; TEMP 97.5; O2SAT 100
[2018-01-25] MEDS: cefTRIAXone 2 GM in Sodium Chloride 0.9% 100 ML IVPB SCH (11:45)
[2018-01-26 15:18] LABS: WNV AB IGM 0.01
== END 2018-01-25 13:55 | disposition home or self-care (01) | DRG 76 ==
LOC: H.ER 20:05 → H.ERHOLD 01-21 02:19 → H.MEDSURG1 01-21 04:13
PROVIDERS: ADMIT Family Medicine; ATTEND Family Medicine
PROC: 009U3ZX Drainage of Spinal Canal, Percutaneous Approach, Diagnostic (ICD-10-PCS; principal; 2018-01-20)
DX: A87.9 Viral meningitis, unspecified (principal)